=== PATIENT | female | born 2000 | race Two or more races ===

== ENCOUNTER 2020-01-04 20:28 | Emergency (ER) | payer OTHER ==
[~2020-01-04] VITALS: Ht 172.7 cm; Wt 95.7 kg
[2020-01-04 20:30] VITALS: BP 126/86
--- NOTE | 2020-01-04 20:30 | NUR ---
ED Nurse Note: Pt brought into ED from home by 829 for suicidal ideation evaluation and placement. Pt states she has been having increased feelings of abandonment over the past few weeks and had a plan to overdose on her home psych/anxiety medications. Pt did not act on impulse at this time, did not take any pills or drink alcohol/use drugs today. Pt states she talked to her therapist today who advised her to come to the ER. Pt appears mildly anxious, but is otherwise very cooperative and talkative. Pt is aaox4, no respiratory or cardiac distress noted and is ambulatory with steady gait. Pt is not placed on 5150 psych hold and will be considered voluntary per ERMD.
--- NOTE | 2020-01-04 20:32 | Emergency Room Report ---
History of Present Illness General Chief Complaint: Behavioral Complaint Source: Patient Present Illness HPI Disclaimer: Please note that this report is being documented using [employer] technology. This can lead to erroneous entry secondary to incorrect interpretation by the dictating instrument. HPI: 19-year-old female with a history of anxiety, depression presents for evaluation of suicidal ideation. The patient states she has been feeling increasingly abandoned and depressed over by her family over the past few weeks. There are no acute changes today however she felt as if she might take an excess of her medications in an attempt to kill herself. She has Klonopin, citalopram, temazepam at home. She did not take any of these medication or act on these impulses. She discussed the symptoms with her psychiatrist, Dr. Rigoberto Suarez, who advised her to come to the emergency department for psychiatric placement. She is a voluntary admission. She is feeling somewhat better though remains anxious. She declined any medication at this point. She did take her morning Klonopin. PMH: Anxiety, depression PSH: Cyst removal Allergies: Denies Social Hx: Denies tobacco, alcohol or drug use Allergies: Coded Allergies: No Known Allergies (Unverified , 01/04/20) COVID-19 Screening Contact w/high risk pt: No Recent Travel to affected area: No Experienced COVID-19 symptoms?: No Review of Systems All Other Systems: negative except mentioned in HPI Physical Exam Vital Signs Date Time Temp Pulse Resp B/P (MAP) Pulse Ox O2 Delivery O2 Flow Rate FiO2 01/04/20 20:24 98.4 114 19 126/86 (99) 97 Room Air General: Awake and alert, anxious appearing, upset HEENT: NC/AT. EOMI. Neck: Supple, trachea midline Chest Wall: No tenderness, no deformity Cardiovascular: Tachycardic. S1 and S2 normal. No murmur appreciated Resp: Normal work of breathing. No cough, wheezing or crackles appreciated Abdomen: Abdomen is soft, nondistended. Nontender Skin: Intact. No abrasions, laceration or rash over the exposed skin MSK: Normal tone and bulk. Moving all extremities. No obvious deformity. Neuro: Awake and alert. Mentating appropriately. Medical Decision Making Diagnostic Impression: Primary Impression: Suicidal ideation ER Course 19-year-old female presents for evaluation of suicidal ideation. Patient is in stable condition though anxious appearing. She denies acting on these impulses and denies any ingestions. Will obtain screening labs as well as tox labs for psychiatric clearance prior to placement. She is a voluntary admission. Laboratory Tests Test 01/04/20 20:55 01/04/20 23:05 White Blood Count 6.0 K/UL (4.8-10.8) Red Blood Count 5.04 M/UL (4.20-5.40) Hemoglobin 14.0 G/DL (12.0-16.0) Hematocrit 41.0 % (37.0-47.0) Mean Corpuscular Volume 81 FL (80-99) Mean Corpuscular Hemoglobin 27.7 PG (27.0-31.0) Mean Corpuscular Hemoglobin Concent 34.0 G/DL (32.0-36.0) Red Cell Distribution Width 10.4 % (11.6-14.8) L Platelet Count 234 K/UL (150-450) Mean Platelet Volume 6.9 FL (6.5-10.1) Neutrophils (%) (Auto) 58.9 % (45.0-75.0) Lymphocytes (%) (Auto) 30.7 % (20.0-45.0) Monocytes (%) (Auto) 8.3 % (1.0-10.0) Eosinophils (%) (Auto) 0.8 % (0.0-3.0) Basophils (%) (Auto) 1.3 % (0.0-2.0) Sodium Level 138 MMOL/L (136-145) Potassium Level 3.6 MMOL/L (3.5-5.1) Chloride Level 103 MMOL/L (98-107) Carbon Dioxide Level 25 MMOL/L (21-32) Anion Gap 10 mmol/L (5-15) Blood Urea Nitrogen 13 mg/dL (7-18) Creatinine 0.8 MG/DL (0.55-1.30) Estimated Glomerular Filtration Rate > 60 mL/min (>60) Glucose Level 93 MG/DL (74-106) Calcium Level 9.9 MG/DL (8.5-10.1) Total Bilirubin 0.6 MG/DL (0.2-1.0) Aspartate Amino Transferase (AST) 18 U/L (15-37) Alanine Aminotransferase (ALT) 23 U/L (12-78) Alkaline Phosphatase 67 U/L (46-116) Total Protein 8.3 G/DL (6.4-8.2) H Albumin 4.3 G/DL (3.4-5.0) Globulin 4.0 g/dL Albumin/Globulin Ratio 1.1 (1.0-2.7) Salicylates Level 0.5 ug/mL (2.8-20) L Acetaminophen Level < 2 MCG/ML (10-30) L Serum Alcohol < 3 mg/dL Urine Color Pale yellow Urine Appearance Clear Urine pH 7 (4.5-8.0) Urine Specific Hector 1.010 (1.005-1.035) Urine Protein Negative (NEGATIVE) Urine Glucose (UA) Negative (NEGATIVE) Urine Ketones Negative (NEGATIVE) Urine Blood Negative (NEGATIVE) Urine Nitrite Negative (NEGATIVE) Urine Bilirubin Negative (NEGATIVE) Urine Urobilinogen Normal MG/DL (0.0-1.0) Urine Leukocyte Esterase 1+ (NEGATIVE) H Urine RBC 0-2 /HPF (0 - 2) Urine WBC 0-2 /HPF (0 - 2) Urine Squamous Epithelial Cells Few /LPF (NONE/OCC) Urine Bacteria Few /HPF (NONE) Urine HCG, Qualitative Negative (NEGATIVE) Urine Opiates Screen Negative (NEGATIVE) Urine Barbiturates Screen Negative (NEGATIVE) Phencyclidine (PCP) Screen Negative (NEGATIVE) Urine Amphetamines Screen Negative (NEGATIVE) Urine Benzodiazepines Screen Negative (NEGATIVE) Urine Cocaine Screen Negative (NEGATIVE) Urine Marijuana (THC) Screen Negative (NEGATIVE) Reevaluation Time: 21:57 Last Vital Signs Date Time Temp Pulse Resp B/P (MAP) Pulse Ox O2 Delivery O2 Flow Rate FiO2 01/04/20 20:24 98.4 114 19 126/86 (99) 97 Room Air Reevaluation Impression Labs are returned within normal limits. The patient remained stable. She is medically cleared for psychiatric evaluation. Awaiting an accepting facility. Disposition: SHORT-TERM HOSP Condition: Stable Moreno Rodriguez MD Jan 04, 2020 20:32
--- NOTE | 2020-01-04 20:45 | NUR ---
ED Nurse Note: Pt placed in psych gown and belongings taken from pt to ensure safety. Blood drawn by RN and sent to lab. Pt is unable to provide urine sample at this time, will obtain.
--- NOTE | 2020-01-04 20:45 | NUR ---
BELONGINGS IN LOCKER #1
[2020-01-04 21:47] LABS: ANION GAP 10 mmol/L (5-15); BASOPHILS % (AUTO) 1.3 % (0.0-2.0); BLOOD UREA NITROGEN 13 mg/dL (7-18); CALCIUM 9.9 MG/DL (8.5-10.1); CARBON DIOXIDE 25 MMOL/L (21-32); CHLORIDE 103 MMOL/L (98-107); CREATININE 0.8 MG/DL (0.55-1.30); EOSINOPHILS % (AUTO) 0.8 % (0.0-3.0); LYMPHOCYTES % (AUTO) 30.7 % (20.0-45.0); MEAN CORPUSCULAR VOLUME 81 FL (80-99); MONOCYTES % (AUTO) 8.3 % (1.0-10.0); NEUTROPHILS % (AUTO) 58.9 % (45.0-75.0); PLATELET COUNT 234 K/UL (150-450); POTASSIUM 3.6 MMOL/L (3.5-5.1); RED BLOOD COUNT 5.04 M/UL (4.20-5.40); RED CELL DISTRIBUTION WIDTH 10.4 % (11.6-14.8); SODIUM 138 MMOL/L (136-145)
[2020-01-04 21:52] LABS: ALANINE AMINOTRANSFERASE 23 U/L (12-78); ALBUMIN 4.3 G/DL (3.4-5.0); ALBUMIN/GLOBULIN RATIO 1.1 (1.0-2.7); ALKALINE PHOSPHATASE 67 U/L (46-116); ASPARTATE AMINO TRANSFERASE 18 U/L (15-37); BILIRUBIN,TOTAL 0.6 MG/DL (0.2-1.0)
--- NOTE | 2020-01-04 22:45 | NUR ---
ED Nurse Note: Pt able to ambulate to restroom with steady gait. Pt is obtaining urine sample. Pt is in no acute distress. Will continue to monitor.
--- NOTE | 2020-01-04 23:00 | NUR ---
ED Nurse Note: Urine specimen collected, sent to lab.
[2020-01-04 23:30] LABS: APPEARANCE,URINE CLEAR; BILIRUBIN, URINE NEGATIVE (NEGATIVE); COLOR,URINE PALE YELLOW; GLUCOSE, URINE (UA) NEGATIVE (NEGATIVE); KETONES,URINE NEGATIVE (NEGATIVE); LEUKOCYTE ESTERASE ,URINE 1+ (NEGATIVE); NITRITE,URINE NEGATIVE (NEGATIVE); PH,URINE 7 (4.5-8.0); PROTEIN,URINE NEGATIVE (NEGATIVE); UROBILINOGEN,URINE NORMAL MG/DL (0.0-1.0)
[2020-01-05 00:30] VITALS: BP 127/92
--- NOTE | 2020-01-05 01:30 | NUR ---
ED Nurse Note: Pt is awake and alert, no acute distress noted. Pt provided with nourishment at this time. Safety measures in place, will continue to monitor.
--- NOTE | 2020-01-05 03:35 | NUR ---
ED Nurse Note: Report give to MONICA Kong and Sandra Neville.
[2020-01-05 04:00] VITALS: BP 135/85
--- NOTE | 2020-01-05 04:00 | NUR ---
ED Nurse Note: Pt is stable for transport to [facility] at this time per ERMD. Pt is being transported by [facility] unit 627 via gurney. Pt is in no acute distress and cooperative. Pt VSS. Pt belongings sent with EMS crew.
== END 2020-01-05 04:00 | disposition short-term general hospital (02) ==
LOC: EDBD 20:28 → EMR 20:49
DX: R45.851 Suicidal ideations (principal); F32.9 Major depressive disorder, single episode, unspecified; F41.9 Anxiety disorder, unspecified; R00.0 Tachycardia, unspecified
CPT/HCPCS: 36415; 80053; 80307; 81003; 81025; 85025; G0480; G0481; Z7502; 99285